=== PATIENT | female | born 1960 | race Caucasian/White ===

== ENCOUNTER → 2019-08-28 13:49 | Outpatient (CLI) | payer OTHER, SELFPAY ==
[2019-08-27 08:11] VITALS: BMI 38.9
--- NOTE | 2019-08-28 13:55 | US_ITS ---
STUDY: ULTRASOUND BREAST - RIGHT REASON FOR EXAM: Female, 58 years old. Ultrasound guided biopsy of the right breast nodule. TECHNIQUE: Axial and longitudinal images of the RIGHT breast were performed with a high resolution ultrasound transducer. COMPARISON: None. FINDINGS: RIGHT Breast: Under direct sonographic guidance, the surgeon performed for core biopsies of a 5 mm x 5 mm x 4 mm hypoechoic solid nodule at the 8:00 position of the breast at 6 cm from nipple. US/US Breast Biopsy 1st Lesion IMPRESSION: Ultrasound guided right breast biopsy. ASSESSMENT CATEGORY: BIRADS Category 2: Benign. A letter regarding these results will be sent to the patient by the facility within 30 days. Electronically Signed: Stefano Sanchez, at 11:05 EST , Service support ,
--- NOTE | 2019-08-28 14:45 | BRBX_PTH ---
PATIENT: YANELIS PAULSON LOC: [facility]#:[id number] AGE/SX: 65/F ROOM: RE08/28/[address]: Dr. Héctor Siddiqui MD : 1960 BED: DIS: SPEC #: [id number] RECD: 08/28/19 15:09 STATUS: PRANAV MILES #: [id number] MELODY: 08/28/19 14:[address]: Héctor Siddiqui DEPT: SURGICAL PATHOLOGY RECD BY: Grupo Torres ENTERED: 08/29/19 09:40 SP TYPE: BREAST BX OTHR DR: Virgen Greene PA-C Tissues: Right breast, NOS Procedures: Surgery Specimen Level IV HEADER OPERATION: Right breast biopsy PRE-OP DIAGNOSIS: Right breast nodule TISSUE SUBMITTED: Right breast nodule ISCHEMIC TIME: 1 minute FIXATION TIME: 29 hours MICROSCOPIC DIAGNOSIS Right breast nodule, core biopsy: Fragments of benign breast tissue with focal minimal fibrocystic changes. Negative for atypia or malignancy. See comment. GLADIS:shy 08/30/19 COMMENT Correlation with clinical, radiologic findings and appropriate follow up are necessary. MICROSCOPIC DESCRIPTION Slides are reviewed. GROSS DESCRIPTION Received in fixative is one container labeled with the patient's name and designated right breast. The specimen consists of multiple elongated fragments of chowdhury-yellow fibroadipose tissue that in aggregate measure 1.5 x 0.7 x 0.1 cm. The entire specimen is submitted in one cassette. / GLADIS:shy 08/29/19 TC:5 CPT: 52671
--- NOTE | 2019-08-28 15:06 | PCM.OPRPT ---
Problem List (1) Abnormal mammogram of right breast Status: Acute Report of Operation Date of Procedure: 08/28/19 Pre-Operative Diagnosis: Abnormal mammogram the right breast Post-Operative Diagnosis: Same Surgery/Procedure Performed:: Ultrasound-guided handheld mammotome biopsy to right breast Type of Anesthesia:: Local Description of Procedure: Patient was brought into the ultrasound room. Placed in the supine position. Ultrasound of the right breast at about the 8 o'clock position the lesion was identified. The breast was prepped with chlorhexidine. 1% lidocaine plain was injected. Under ultrasound guidance local was directed posterior to the lesion. A skin vangie was made. Under ultrasound guidance the hand-held mammotome needle was directed posterior to the lesion. Under ultrasound guidance numerous biopsies were obtained. Under ultrasound guidance a small titanium clip was placed. Sterile dressings were applied. The patient tolerated the procedure well. - Admit VTE Documentation VTE Present on Admission: No VTE Mechan Device Prophylaxis: None VTE Pharm Prophylaxis ordered?: No Reason prophylaxis not ordered:: Treatment Not Indicated
== END ==
PROVIDERS: Family Provider Family Medicine; PCP Family Medicine; Referring Provider Surgery; Visit Provider Surgery
DX: N60.11 Diffuse cystic mastopathy of right breast (principal)
CPT/HCPCS: 19083; 88305

== ENCOUNTER 2019-09-03 08:42 | Day surgery (SDC) | payer OTHER, SELFPAY ==
[2019-08-21 08:15] VITALS: BMI 38.9
--- NOTE | 2019-08-21 08:29 | HP_ITS ---
Intake Vital Signs 08/21/19 Height 5 ft 6 in 08/21/19 Weight: 241 lb 08/21/19 Body Mass Index (BMI) 38.9 08/21/19 Blood Pressure 141/83 H 08/21/19 Blood Pressure Location Rt brachial 08/21/19 Blood Pressure Position Sitting 08/21/19 Respiratory Rate 18 Intake Visit Reasons: Rt Breast Birads [facility] US 08/07 Urology Nurse Required: No Is patient in pain?: No Allergies No Known Allergies Allergy (Verified 08/21/19 08:16) Medications fluoxetine 20 mg capsule 20 mg PO DAILY 08/21/19 [History Confirmed 08/21/19] hydrochlorothiazide 25 mg tablet 25 mg PO DAILY 08/21/19 [History Confirmed 08/21/19] lisinopril 20 mg tablet 20 mg PO DAILY 08/21/19 [History Confirmed 08/21/19] metoprolol succinate ER 25 mg tablet,extended release 24 hr 25 mg PO DAILY 08/21/19 [History Confirmed 08/21/19] PFS Medical History Depression (Acute) HTN (hypertension) (Chronic) Surgical History S/P laparoscopic cholecystectomy (Acute) S/P tonsillectomy and adenoidectomy (Acute) s/p tubal clips (Acute) Family History Mother Asthma Heart disease Hypertension Father Diabetes CVA (cerebral vascular accident) Social History (Updated 08/21/19 @ 08:30 by Héctor Siddiqui MD) Smoking Status: Never smoker alcohol intake: never HPI HPI HPI: YANELIS PAULSON, is a 58 F who presents to the office today for HPI HPI Surgical H&P: Yes HPI: YANELIS PAULSON, is a 58 F who presents to the office today for Evaluation of an abnormal mammogram and ultrasound to her right breast.This showed a complex versus cysticArea measuring approximately 6 mm in greatest diameter. This was located mid breast depth. The patient does not feel anything. She is having no breast pain. She has never had a colonoscopy ROS General General: Yes weight change; no appetite, fatigue, colon cancer, breast cancer or weakness HEENT HEENT: No difficulty swallowing, eye injury, eye surgery, swollen glands or hoarseness Endo Endocrine: No thyroid disease, diabetes mellitus, thyroid cancer, Hair loss, heat intolerance or cold intolerance Skin Skin: No rash or changing moles Breast Breast: No left breast lump, right breast lump, nipple discharge, breast pain, abnormal mammogram, abnormal US or breast enlargement Musc Musculoskeletal: Yes arthritis; no back problems, rheumatoid arthritis, gout or joint pain Cardio Cardiovascular: Yes high blood pressure; no murmur, pacemaker, heart disease, atrial fibrillation, heart attack, heart stent, palpitations, shortness of breat with exertion or chest pain Psych Psychiatric: Yes anxiety; no depression or hearing voices Resp Respiratory: No shortness of breath, No sleep apnea, No cough, No COPD, No asthma, No emphysema, No wheezing Gastro Gastrointestinal: No abdominal pain, No nausea or vomiting, No diarrhea, No constipation, No blood in stool, No acid reflux, Yes hemorrhoids, No ulcers, No gallbladder problem, No black,tarry stools Victoriano Hematologic: No blood thinners, No blood disorders, No bleeding, No anemia, No blood clots Neuro Neurologic: No system reviewed and no additional complaints, except as docu, No as per HPI, No abnormal walking, No abnormal hearing, No abnormal movements, No abnormal speech, No behavioral changes, No burning sensations, No confusion, No seizure-like activity, No unsteadiness, No dizziness, No localized weakness, No frequent falls, No headache(s), No lack of coordination, No loss of vision, No memory loss, No numbness, No other visual disturbances, No radiating pain, No restless legs, No sensory deficit, No fainting, No tingling, No tremor(s), No weakness, No other Exam Const General: no acute distress, well developed, well hydrated Orientation: oriented to person, oriented to place, oriented to time [facility] Head: normocephalic, atraumatic Ears: external ears normal Mouth: moist mucous membranes Eyes Sclera: sclerae normal Pupils: normal by confrontation Neck Neck: no lymphadenopathy noted Neck mass: No Thyroid: thyroid normal, symmetrical Chest Chest palpation & inspection: normal inspection of the chest Breast Palpation: No nipple discharge Resp Effort & Inspection: normal respiratory effort Auscultation: clear to auscultation bilaterally Percussion: percussion normal Cardio Rate: regular rate Rhythm: regular rhythm Heart Sounds: no murmurs GI Palpation: soft, no hepatosplenomegaly, no masses, nontender Rectal Exam: other Other: Rectal exam deferred. Extrem General: normal to inspection, no clubbing, cyanosis or edema Assessment & Plan Problems 1. Abnormal mammogram of right breast R92.8 2. Encounter for screening colonoscopy Z12.11 Plan I have discussed above with the patient. I have recommended ultrasound guided needle core breast biopsy with vacuum assistance. I have described the procedure to the patient. I have discussed with the patient that sometimes the ultrasound lesion may be artifact and is user dependent and therefore prior to undergoing the procedure, the patient will have a definitive US to ensure that the lesion is truly present and is not artifact. A marker clip will be placed to identify the location. Patient has been counseled to the risks/benefits of the procedure. I have explained the risks of the surgery, including but not limited to: infection, bleeding, injury to any blood vessels/nerves, scar tissue, missing the lesion, further surgery, etc. - the patient understands and agrees to proceed. I have answered all of the patient's questions to her satisfaction and she has no further questions. I have discussed the above with the patient. I have offered the patient colonoscopy for evaluation. I have explained the risks/benefits of the procedure and described the procedure. I have discussed the risks with the patient, including but not limited to: infection, bleeding, perforation of the GI tract requiring emergency surgery, inability to complete the procedure, injury to any internal organs, complications of anesthesia, etc. - the patient understands and agrees to proceed. I have answered all the patient's questions to the patient's satisfaction and the patient has no further questions. The patient has been given instructions for the colon cleansing preparation. Coding Level of Care Code Off vis,new,level 3 Diagnoses Abnormal mammogram of right breast R92.8 Encounter for screening colonoscopy Z12.11 08/21/19 5034 <Electronically signed by Héctor torrez MD> Date _ Héctor Siddiqui MD I have re-examined the patient. There are no clinical changes since date of exam.
[2019-08-27 08:11] VITALS: BMI 38.9
[2019-09-03] VITALS (7 sets, daily range): BP systolic 105–139; BP diastolic 58–78; PULSE 67–74; RESP 16; TEMP 36.7–36.8; O2SAT 67–93; BMI 39.8
[2019-09-03] MEDS: Lactated Ringers 1,000 ML 100 ML IV (09:35)
--- NOTE | 2019-09-03 09:57 | PCM.HP.BLA ---
History and Physical Date of Admission: 09/03/19 [facility] Medical Records Department [address] [place] [address] History and Physical 08/21/19828 MR#: [id number] Acct: [id number] Name: YANELIS PAULSON Rep #: [id number] : 1960 58 From: Héctor Siddiqui MD PCP: Virgen Greene PA-C Status: PRE [facility] Location: EN Intake Vital Signs 08/21/19 Height 5 ft 6 in 08/21/19 Weight: 241 lb 08/21/19 Body Mass Index (BMI) 38.9 08/21/19 Blood Pressure 141/83 H 08/21/19 Blood Pressure Location Rt brachial 08/21/19 Blood Pressure Position Sitting 08/21/19 Respiratory Rate 18 Intake Visit Reasons: Rt Breast Birads 3 [facility] 08/07 [employer] Material Mover Required: No Is patient in pain?: No Allergies No Known Allergies Allergy (Verified 08/21/19 08:16) Medications fluoxetine 20 mg capsule 20 mg PO DAILY 08/21/19 [History Confirmed 08/21/19] hydrochlorothiazide 25 mg tablet 25 mg PO DAILY 08/21/19 [History Confirmed 08/21/19] lisinopril 20 mg tablet 20 mg PO DAILY 08/21/19 [History Confirmed 08/21/19] metoprolol succinate ER 25 mg tablet,extended release 24 hr 25 mg PO DAILY 08/21/19 [History Confirmed 08/21/19] PFSH Medical History Depression (Acute) HTN (hypertension) (Chronic) Surgical History S/P laparoscopic cholecystectomy (Acute) S/P tonsillectomy and adenoidectomy (Acute) s/p tubal clips (Acute) Family History Mother Asthma Heart disease Hypertension Father Diabetes CVA (cerebral vascular accident) Social History (Updated 08/21/19 @ 08:30 by Héctor Siddiqui MD) Smoking Status: Never smoker alcohol intake: never HPI HPI HPI: YANELIS PAULSON, is a 58 F who presents to the office today for HPI HPI Surgical H&P: Yes HPI: YANELIS PAULSON, is a 58 F who presents to the office today for Evaluation of an abnormal mammogram and ultrasound to her right breast.This showed a complex versus cysticArea measuring approximately 6 mm in greatest diameter. This was located mid breast depth. The patient does not feel anything. She is having no breast pain. She has never had a colonoscopy ROS General General: Yes weight change; no appetite, fatigue, colon cancer, breast cancer or weakness HEENT HEENT: No difficulty swallowing, eye injury, eye surgery, swollen glands or hoarseness Endo Endocrine: No thyroid disease, diabetes mellitus, thyroid cancer, Hair loss, heat intolerance or cold intolerance Skin Skin: No rash or changing moles Breast Breast: No left breast lump, right breast lump, nipple discharge, breast pain, abnormal mammogram, abnormal US or breast enlargement Musc Musculoskeletal: Yes arthritis; no back problems, rheumatoid arthritis, gout or joint pain Cardio Cardiovascular: Yes high blood pressure; no murmur, pacemaker, heart disease, atrial fibrillation, heart attack, heart stent, palpitations, shortness of breat with exertion or chest pain Psych Psychiatric: Yes anxiety; no depression or hearing voices Resp Respiratory: No shortness of breath, No sleep apnea, No cough, No COPD, No asthma, No emphysema, No wheezing Gastro Gastrointestinal: No abdominal pain, No nausea or vomiting, No diarrhea, No constipation, No blood in stool, No acid reflux, Yes hemorrhoids, No ulcers, No gallbladder problem, No black,tarry stools Victoriano Hematologic: No blood thinners, No blood disorders, No bleeding, No anemia, No blood clots Neuro Neurologic: No system reviewed and no additional complaints, except as docu, No as per HPI, No abnormal walking, No abnormal hearing, No abnormal movements, No abnormal speech, No behavioral changes, No burning sensations, No confusion, No seizure-like activity, No unsteadiness, No dizziness, No localized weakness, No frequent falls, No headache(s), No lack of coordination, No loss of vision, No memory loss, No numbness, No other visual disturbances, No radiating pain, No restless legs, No sensory deficit, No fainting, No tingling, No tremor(s), No weakness, No other Exam Const General: no acute distress, well developed, well hydrated Orientation: oriented to person, oriented to place, oriented to time [facility] Head: normocephalic, atraumatic Ears: external ears normal Mouth: moist mucous membranes Eyes Sclera: sclerae normal Pupils: normal by confrontation Neck Neck: no lymphadenopathy noted Neck mass: No Thyroid: thyroid normal, symmetrical Chest Chest palpation & inspection: normal inspection of the chest Breast Palpation: No nipple discharge Resp Effort & Inspection: normal respiratory effort Auscultation: clear to auscultation bilaterally Percussion: percussion normal Cardio Rate: regular rate Rhythm: regular rhythm Heart Sounds: no murmurs GI Palpation: soft, no hepatosplenomegaly, no masses, nontender Rectal Exam: other Other: Rectal exam deferred. Extrem General: normal to inspection, no clubbing, cyanosis or edema Assessment & Plan Problems 1. Abnormal mammogram of right breast R92.8 2. Encounter for screening colonoscopy Z12.11 Plan I have discussed above with the patient. I have recommended ultrasound guided needle core breast biopsy with vacuum assistance. I have described the procedure to the patient. I have discussed with the patient that sometimes the ultrasound lesion may be artifact and is user dependent and therefore prior to undergoing the procedure, the patient will have a definitive US to ensure that the lesion is truly present and is not artifact. A marker clip will be placed to identify the location. Patient has been counseled to the risks/benefits of the procedure. I have explained the risks of the surgery, including but not limited to: infection, bleeding, injury to any blood vessels/nerves, scar tissue, missing the lesion, further surgery, etc. - the patient understands and agrees to proceed. I have answered all of the patient's questions to her satisfaction and she has no further questions. I have discussed the above with the patient. I have offered the patient colonoscopy for evaluation. I have explained the risks/benefits of the procedure and described the procedure. I have discussed the risks with the patient, including but not limited to: infection, bleeding, perforation of the GI tract requiring emergency surgery, inability to complete the procedure, injury to any internal organs, complications of anesthesia, etc. - the patient understands and agrees to proceed. I have answered all the patient's questions to the patient's satisfaction and the patient has no further questions. The patient has been given instructions for the colon cleansing preparation. Coding Level of Care Code Off vis,new,level 3 Diagnoses Abnormal mammogram of right breast R92.8 Encounter for screening colonoscopy Z12.11 CC: ANAMIKA Greene; Héctor Siddiqui MD ~ Date Dictated: 08/21/1929 Date Transcribed: 08/27/19 1029 Security Control Assessor: Signed I have re-examined the patient. There are no clinical changes since date of exam.
--- NOTE | 2019-09-03 10:15 | OP.COLON_ITS ---
Patient Name: Ish Joy Procedure Date: 09/03/2019 9:54 AM Date of : 1960 Age: 58 Procedure: Colonoscopy Indications: Screening for colorectal malignant neoplasm Providers: Héctor Siddiqui MD Referring MD: Virgen Greene Medicines: See the Anesthesia note for documentation of the administered medications Patient Profile: This is a 58 year old female. Refer to note in patient chart for documentation of history and physical. Last Colonoscopy: none. The patient's first colonoscopy is today. Complications: No immediate complications. Procedure: Pre-Anesthesia Assessment: - Prior to the procedure, a History and Physical was performed, and patient medications and allergies were reviewed. The patient's tolerance of previous anesthesia was also reviewed. The risks and benefits of the procedure and the sedation options and risks were discussed with the patient. All questions were answered, and informed consent was obtained. Prior Anticoagulants: The patient has taken no previous anticoagulant or antiplatelet agents. ASA Grade Assessment: II - A patient with mild systemic disease. After reviewing the risks and benefits, the patient was deemed in satisfactory condition to undergo the procedure. After I obtained informed consent, the scope was passed under direct vision. Throughout the procedure, the patient's blood pressure, pulse, and oxygen saturations were monitored continuously. The colonoscope was introduced through the anus and advanced to the cecum, identified by appendiceal orifice and ileocecal valve. The colonoscopy was performed without difficulty. The patient tolerated the procedure well. The quality of the bowel preparation was good. Scope In: 10:01:55 AM Scope Withdrawal Time 0 hours 6 minutes 33 seconds Scope Out: 10:11:23 AM Total Procedure Duration Time 0 hours 9 minutes 28 seconds Findings: A few small-mouthed diverticula were found in the sigmoid colon. No biopsies or other specimens were collected for this exam. Non-bleeding internal hemorrhoids were found during retroflexion. The hemorrhoids were mild and small. The exam was otherwise without abnormality. Impression: - Diverticulosis in the sigmoid colon. No specimens collected. - Non-bleeding internal hemorrhoids. - The examination was otherwise normal. Recommendation: - Discharge patient to home. - Resume previous diet. - Continue present medications. - Repeat colonoscopy in 10 years for screening purposes. - Return to primary care physician PRN. Procedure Code(s): --- Professional --- 25227, Colonoscopy, flexible; diagnostic, including collection of specimen(s) by brushing or washing, when performed (separate procedure) Diagnosis Code(s): --- Professional --- Z12.11, Encounter for screening for malignant neoplasm of colon K64.8, Other hemorrhoids K57.30, Diverticulosis of large intestine without perforation or abscess without bleeding CPT copyright 2017 [employer]. All rights reserved. The codes documented in this report are preliminary and upon retail beauty specialist review may be revised to meet current compliance requirements. MD Héctor Aguilar MD 09/03/2019 10:14:49 AM This report has been signed electronically. Number of Addenda: 0 Note Initiated On: 09/03/2019 9:54 AM
== END 2019-09-03 11:02 | disposition home or self-care (01) ==
LOC: EN 08:43 → AC 08:44
PROVIDERS: Family Provider Family Medicine; PCP Family Medicine; Referring Provider Family Medicine; Visit Provider Surgery
PROC: 0DJD8ZZ Inspection of Lower Intestinal Tract, Via Natural or Artificial Opening Endoscopic (ICD-10-PCS; CPT 45378; principal; 2019-09-03 09:55)
DX: Z12.11 Encounter for screening for malignant neoplasm of colon (principal); K57.30 Diverticulosis of large intestine without perforation or abscess without bleeding; K64.8 Other hemorrhoids; F32.9 Major depressive disorder, single episode, unspecified; I10 Essential (primary) hypertension; M19.90 Unspecified osteoarthritis, unspecified site; F41.9 Anxiety disorder, unspecified; K44.9 Diaphragmatic hernia without obstruction or gangrene; Z78.0 Asymptomatic menopausal state; Z79.899 Other long term (current) drug therapy
CPT/HCPCS: 45378; J7120